=== PATIENT | female | born 1970 | race Two or more races ===

== ENCOUNTER → 2020-03-11 | Emergency (ER) | payer MEDICAID, OTHER ==
[~2020-03-11] VITALS: Ht 172.7 cm; Wt 68.0 kg
[~2020-03-11] MED LIST: traMADol HCL 50 MG TAB PO ONE
[2020-03-11 12:30] VITALS: BP 142/69
== END | disposition home or self-care (01) ==
LOC: EDUNIT# 11:36 → EDBD 11:42 → ER 11:42
DX: S20.219A Contusion of unspecified front wall of thorax, initial encounter (principal); V29.9XXA Motorcycle rider (driver) (passenger) injured in unspecified traffic accident, initial encounter; Y93.89 Activity, other specified; Y92.89 Other specified places as the place of occurrence of the external cause; Y99.8 Other external cause status
CPT/HCPCS: 71046; 93005